=== PATIENT | male | born 1935 | race Hispanic/Latino ===

== ENCOUNTER 2017-05-12 17:59 | Emergency (ER) | payer MEDICARE, OTHER ==
--- NOTE | 2017-05-12 19:15 | Cat Scan Report ---
FINAL REPORT PROCEDURE: CT HEAD/BRAIN WO CON TECHNIQUE: Computerized tomography of the head was performed without contrast material. DLP 1075.62 mGy-cm. HISTORY: Fall. Injury. Laceration. COMPARISON: No prior studies are available for comparison. FINDINGS: Skull and scalp: Normal. Paranasal sinuses: Moderate left maxillary sinusitis. Scattered left fronto ethmoid and ethmoid sinusitis. Slight rightward septal deviation. Ventricles and subarachnoid spaces: Normal. Cerebrum: No evidence of hemorrhage, acute infarction or mass. Mild atrophy. Subtle periventricular white matter low attenuation. Cerebellum and brainstem: No evidence of hemorrhage, acute infarction or mass. Vasculature: Mild atherosclerosis. Tortuous basilar/vertebral arteries. Comments: Bilateral lens surgery. IMPRESSION: No CT evidence of acute intracranial pathology. Atrophy. 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 Consider MRI of the brain for further characterization if there is continued clinical concern and if patient has no contraindication to MRI. Sinusitis.
[2017-05-12] MEDS ORDERED: XYLOCAINE 1% MPF 5 mL INFILTRATI ONE (20:44)
[2017-05-12] MEDS ORDERED: XYLOCAINE 1% MPF 5 mL ONE (20:45)
--- NOTE | 2017-05-12 20:46 | Emergency Department Report ---
Head Injury w/o Laceration - [facility] Chief Complaint: Fall Stated Complaint: FALL Time Seen by Provider: 05/12/17 20:26 Occurred When: Today Mechanism: Fall Location: Frontal Severity: mild Head Inj w/o Lac: Yes Swelling, Yes Break in Skin, Yes Bleeding (patient has a 1half centimeter laceration above the right eye), No Loss of Consciousness, No Nausea, No Blurred Vision, No Altered Mental Status, No Headache, No Focal Deficit ED General PMH - Social History Smoking Status: Never Smoker Head Injury W/O Lac Exam - Exam General: Vital signs noted. No distress. Alert and acting appropriately. Head: Yes Pupils are PERRL, No Hemotympanum, No Hematoma/Ecchymosis, No Epistaxis, No Stepoff/Deformity, No Laceration, No Abrasion Chest, Abd, & Ext: Yes Clear Lung Sounds, Yes Regular Heart Rhythm, No Neck Pain , No Chest Injury/Pain, No Heart Murmur, No Abdominal Tenderness, No Back Tenderness, No Extremity Injury Neuroligical (Head Inj W/O Lac: Yes Normal Speech, Yes Normal Gait, No Lethargy , No Disorientation, No Focal Numbness, No Focal Weakness Exam: Is a 1 1/2 cm laceration above the right eye - Laceration /Wound Repair Right Face Wound Location: face (above the right eye) Wound Length (cm): 2 Wound's Depth, Shape: superficial Wound Explored: clean Betadine Prep?: Yes Anesthesia: 1% Lidocaine Wound Repaired With: sutures Suture Size/Type: 5:0 Number of Sutures: 3 Layer Closure?: No Sterile Dressing Applied?: Yes ED Disposition Clinical Impression: Closed head injury Qualifiers: Encounter type: initial encounter Qualified Code(s): S09.90XA - Unspecified injury of head, initial encounter Facial laceration Qualifiers: Encounter type: initial encounter Qualified Code(s): S01.81XA - Laceration without foreign body of other part of head, initial encounter Disposition: TO HOME OR SELFCARE Is pt being admited?: No Does the pt Need Aspirin: No Condition: Fair Instructions: Laceration (ED), Minor Head Injury (ED) Referrals: PRIMARY CARE, [Primary Care Provider] - 3-5 Days
[2017-05-12 23:58] VITALS: BP 126/81
== END 2017-05-12 21:00 | disposition home or self-care (01) ==
LOC: ED 17:59
DX: S05.31XA Ocular laceration without prolapse or loss of intraocular tissue, right eye, initial encounter (principal); W26.8XXA Contact with other sharp object(s), not elsewhere classified, initial encounter; Y93.89 Activity, other specified; Y92.89 Other specified places as the place of occurrence of the external cause; Y99.8 Other external cause status
CPT/HCPCS: 70450; 99283